=== PATIENT | female | born 1945 | race Asian ===

== ENCOUNTER → 2016-09-20 | Outpatient (CLI) | payer MEDICARE, OTHER | LOC: SP 11:02 | PROVIDERS: ATTEND Specialist | DX: Z79.899 Other long term (current) drug therapy (principal) | CPT/HCPCS: 93306 ==

== ENCOUNTER → 2016-12-21 | Outpatient (CLI) | payer MEDICARE, OTHER ==
--- NOTE | 2016-12-21 19:32 | XCELERA REPORT ---
[address] [address] Transthoracic Echocardiogram Report Name: LAURA COLLADO Age: 71 yrs Gender: Female : 1945 Patient Status: Outpatient Patient Location: Study Date: 12/21/2016 10:27 AM Height: 61 in Weight: 101 lb BSA: 1.4 m2 Reason For Study: CHEMOTHERAPY ENCOUNTER Z51.11 Ordering Physician: MYNOR MARQUIS Performed By: Efren Augustine Interpretation Summary LVEF 60%, probably no LVDD. Hypokinetic IVS and apical Inferior wall. Normal AV, no or AR, MR mild/mod with no LA enlargement. Mild/mod TR with upper normal RVSP 30mm Hg,with no R heart enlargement. MMode/2D Measurements \T\ Calculations RVDd: 2.2 cm LVIDd: 4.3 cm FS: 32.1 % Ao root diam: 2.9 cm IVSd: 0.75 cm LVIDs: 2.9 cm EDV(Teich): 81.8 ml LVPWd: 0.76 cm ESV(Teich): 32.3 ml Ao root area: 6.8 cm2 EF(Teich): 60.6 % LA dimension: 3.3 cm Doppler Measurements \T\ Calculations MV E max lilly: MV P1/2t max lilly: Ao V2 max: LV V1 max P.2 cm/sec 102.2 cm/sec 135.1 cm/sec 2.7 mmHg MV A max lilly: MV P1/2t: 48.7 msec Ao max PG: LV V1 max: 103.7 cm/sec 7.3 mmHg 81.4 cm/sec MV E/A: 0.99 MVA(P1/2t): 4.5 cm2 MV dec slope: 614.4 cm/sec2 PA V2 max: PI end-d lilly: TR max lilly: RAP systole: 82.3 cm/sec 120.8 cm/sec 247.8 cm/sec 10.0 mmHg PA max P.7 mmHg TR max P.6 mmHg RVSP(TR): 34.6 mmHg Left Ventricle The left ventricle is normal in size, thickness and function. There is normal left ventricular wall thickness. LV EF is 60%. LV diastolic function not assessed. There is septal wall mild hypokinesis. There is no thrombus. Right Ventricle The right ventricle is normal in size, thickness and function. The right ventricular systolic function is normal. Atria The right atrium is normal in size. The left atrial size is normal. The interatrial septum is intact with no evidence for an atrial septal defect. Mitral Valve The mitral valve is normal in structure and function. There is no evidence of mitral valve prolapse. There is no mitral valve stenosis. There is a moderate amount of mitral regurgitation. The mitral regurgitant jet is eccentrically directed. Aortic Valve The aortic valve is sclerotic, but shows no functional abnormality. The aortic valve is trileaflet. The aortic valve opens well. There is no aortic valvular vegetation. There is no aortic valve stenosis. No aortic regurgitation is present. Tricuspid Valve The tricuspid valve is not well visualized, but is grossly normal. There is no tricuspid valve prolapse. There is no tricuspid stenosis. There is a mild to moderate amount of tricuspid regurgitation. Right ventricular systolic pressure is estimated to be within upper limit of normal. Pulmonic Valve The pulmonic valve is not well visualized. There is a mild amount of pulmonic regurgitation. Great Vessels The aortic root is normal size. Effusions Minimal pericardial effusion. I WMSI = 1.38 % Normal = 63 Segments Size X - Cannot 1 - Normal 2 - 3 - Akinetic4 - 1-2 small Interpret Hypokinetic Dyskinetic 3-5 moderate 5 - 6-14 large Aneurysmal 15-16 diffuse : MYNOR MARQUIS > Ashleigh, Ritchie
== END ==
LOC: SP 09:57
PROVIDERS: ATTEND Specialist
DX: Z51.11 Encounter for antineoplastic chemotherapy (principal); Z79.899 Other long term (current) drug therapy
CPT/HCPCS: 93306

== ENCOUNTER 2017-01-05 11:27 | Day surgery (SDC) | payer MEDICARE, OTHER ==
--- NOTE | 2017-01-03 12:01 | EKG REPORT ---
SEVERITY:- ABNORMAL ECG - SINUS RHYTHM CONSIDER LEFT VENTRICULAR HYPERTROPHY : Confirmed by: Bernarda Da Silva 03-Jan-2017 12:01:29
[2017-01-03 12:33] LABS: HEMATOCRIT 30.9 % (36.0-47.0); HEMOGLOBIN 10.4 g/dL (12.0-15.5); HGB HCT DIFFERENCE 0.3; MEAN CORPUSCULAR HEMOGLOBIN 33.6 pg (27.0-33.4); MEAN CORPUSCULAR HGB CONC 33.8 g/dL (32.0-36.0); MEAN CORPUSCULAR VOLUME 99 fl (80-97); RED BLOOD COUNT 3.11 10^6/uL (3.72-5.28); RED CELL DISTRIBUTION WIDTH 17.5 % (11.5-14.0); WHITE BLOOD COUNT 12.6 10^3/uL (4.0-10.5)
[~2017-01-05 11:27] MED LIST: ACETAMINOPHEN 325 MG TABLET PO PRN; CEFAZOLIN 1 GM/D5W RTU 1 GM/50 ML RTUPB IV PRN; LACTATED RINGERS 1000 ML IV PRN; LIDOCAINE 0.5% INJ-PF (5 MG/ML) 50 ML SDV SUBCUT PRN; LIDOCAINE 1% INJ-PF (10 MG/ML) 30 ML SDV ONE
[2017-01-05] MEDS ORDERED: LIDOCAINE 1% INJ-PF (10 MG/ML) 30 ML SDV ONE (13:45)
[2017-01-05] MEDS ORDERED: FENTANYL CITRATE INJ/PF 100 MCG/2 ML AMPUL ONE ×2 (14:02)
[2017-01-05] MEDS ORDERED: MIDAZOLAM 2 MG/2 ML INJ ONE (14:03)
[2017-01-05] MEDS ORDERED: ONDANSETRON HCL INJ/PF 4 MG/2 ML SDV IV PRN ×2 (14:35→14:59)
[2017-01-05] MEDS ORDERED: FENTANYL CITRATE INJ/PF 100 MCG/2 ML AMPUL IV PRN ×3 (14:35)
[2017-01-05] MEDS ORDERED: DIPHENHYDRAMINE HCL 50 MG/ML VIAL IV PRN (14:35)
[2017-01-05] MEDS ORDERED: OXYCODONE-ACETAMINOPHEN 5-325 MG TABLET PO PRN (14:59)
[2017-01-05] MEDS ORDERED: RINGERS SOLUTION,LACTATED 1,000 ML IV PRN (14:59)
[2017-01-05] MEDS ORDERED: MORPHINE SULFATE 10 MG/ML INJ IV PRN (14:59)
--- NOTE | 2017-01-05 15:07 | PDOC DISCHARGE SUMMARY ---
Discharge Summary (SDC) - Discharge Final Diagnosis: breast cancer Date of Surgery: 01/05/17 Discharge Date: 01/05/17 Condition: Good Treatment or Instructions: [facility] [address] [place] [id number] Discharge Instructions: Neck Surgery 1. General Information: a. Do not drive a car or operate machinery for 1-2 weeks or as long as taking narcotics for pain. b. Do not consume alcohol, tranquilizers, sleeping medications or any non- prescribed medications for 24 hours unless approved by your doctor or as long as taking pain medication. c. Do not make important decisions or sign any important papers for the first 24 hours after surgery. d. When discharged home the same day of surgery have a responsible person with you for the first night. 2. Activity Restrictions: 2 weeks. a. Avoid heavy lifting > 10 lbs, straining, sports, mowing lawn, shoveling snow, vacuum cleaning and bending over a lot. Limit bending to taking a shower and getting dressed. Sleep with head elevated (2 pillows). b. Walking is important to avoid blood clots in the legs and deep breathing can prevent pneumonia. c. It is fine to go up and down steps, ride in a car, and use a stationary bike with low resistance. 3. Treatment: a. The dressing can be removed the day after surgery and to shower then daily is fine, but you should not bathe in the tub or go swimming for 2 weeks. The paper strips (steri-strips) on the skin will fall off and can get wet with a shower, just pat them dry. The sutures dissolve and the strips will be removed in the office on your follow up visit if they have not fallen off by then. May shower 24 hours after surgery; if your incision was glued you may wash your neck and expect glue to fall off in about 2 weeks. b. Do not use oils, powders or lotion on your incision until after the first postoperative visit. Then you may begin to apply daily to the incision a cream of your choice (Vitamin E, cocoa butter, scar creams) to help soften the scar. c. If you are fair skinned it would be sheikh to use sunscreen on the scar for the first 6 months or keep it covered to avoid tanning pigment deposits being trapped in the scar creating a dark line instead of a pink scar. 4. Medications: a. b. Stop the narcotic when able since you cannot take and drive and they may cause constipation. You may switch to plain Tylenol, Advil or Aleve as you transition from the narcotic. Many adults find good pain relief with Ibuprofen 600-800 mg three times a day with meals to work well to avoid narcotic use. High doses of Ibuprofen should only be used for short courses since it can cause indigestion, ulcer bleeding in the stomach and harm kidney function. c. You should resume all normal medications unless a change is specified by your doctors. d. 5. Diet: a. If going home same day of surgery you should begin with clear liquids and if do well then advance to a normal diet with foods low in fat and protein. Small portion sizes may be sheikh the first night to lessen risk of vomiting. b. When discharged after a hospital stay you may resume a normal diet. 6. Notify Physician If: a. Worsening of pain or swelling in neck, persistent bleeding at the operative site, nausea and vomiting, fever above 101, unable to urinate and bladder pressure after 8-12 hours, increased redness, drainage, or foul smelling discharge from the incision. b. If you have difficulty breathing or chest pain, call an ambulance and/or go to the Emergency Room. 7. Follow Up Care: a. Schedule a follow up appointment with your doctor for 2 weeks. In the event of any postoperative problems or questions or you may call the office during business hours or the On-Call physician evenings and weekends at [facility]. [facility] 8. I understand the instructions for my postoperative care as described above and a copy has been given to me. Patient/Significant Other Witness Date Prescriptions: Ketorolac Tromethamine [Toradol 10 mg Tablet] 10 mg PO Q6HP #14 tablet Referrals: SANCHEZ SOMMER MD [Primary Care Provider] - Discharge Activity: Activity As Tolerated Home Care Assistance: None Needed Report the Following to Your Physician Immediately: Shortness of Breath, Increase in Pain, Fever over 101 Degrees
--- NOTE | 2017-01-05 16:02 | RADIOLOGY REPORT (SQ) ---
EXAM DESCRIPTION: FLUORO/CV PLACEMENT COMPLETED DATE/TIME: 01/05/2017 3:27 pm REASON FOR STUDY: PORTACATH PLCMT ASST WITH FLUORO IN OR C50.411 MALIG NEOPLM OF UPPER-OUTER QUADRA NT OF RIGHT FEMALE Z01.818 ENCOUNTER FOR OTHER PREPROCEDURAL EXAMINATION COMPARISON: None. FLUOROSCOPY TIME: 0.2 minutes 3 digital C-arm images saved to PACS. TECHNIQUE: Intra-operative images acquired during surgical procedure to evaluate progress. NUMBER OF IMAGES: Cine fluoroscopic images. LIMITATIONS: None. FINDINGS: Intra procedural imaging and fluoro during left-sided permanent central line placement. P lease see the operative report for further details IMPRESSION: Intra procedural imaging and fluoro COMMENT: Quality ID [id number]: Final reports for procedures using fluoroscopy that document radiation exp osure indices, or exposure time and number of fluorographic images (if radiation exposure indices are not available) Please consult full operative report of the attending physician for description of the procedure. TECHNICAL DOCUMENTATION: JOB ID: [id number] [employer]- All Rights Reserved
--- NOTE | 2017-01-05 16:05 | RADIOLOGY REPORT (SQ) ---
EXAM DESCRIPTION: CHEST SINGLE VIEW COMPLETED DATE/TIME: 01/05/2017 3:28 pm REASON FOR STUDY: s/p port COMPARISON: CT chest 01/28/2011 EXAM PARAMETERS: NUMBER OF VIEWS: One view. TECHNIQUE: Single frontal radiographic view of the chest acquired. RADIATION DOSE: NA LIMITATIONS: None. FINDINGS: LUNGS AND PLEURA: Less than 1 cm nodule projected over the left lateral costophrenic sulcu s is likely the left nipple shadow. No focal infiltrates. No pleural effusion. No pneumothorax. MEDIASTINUM AND HILAR STRUCTURES: No masses. Contour normal. HEART AND VASCULAR STRUCTURES: Heart normal in size. Normal vasculature. BONES: No acute findings. HARDWARE: Left-sided permanent central line tip superior vena cava. Right breast surgical clips post mastectomy OTHER: No other significant finding. IMPRESSION: No pneumothorax post left-sided permanent central line placement, with the tip in the anderson perior vena cava TECHNICAL DOCUMENTATION: JOB ID: [id number]
--- NOTE | 2017-01-05 17:07 | OPERATIVE REPORT E ---
Operative Report NAME: LAURA COLLADO : 1945 AGE: 71Y DATE OF SURGERY: 01/05/2017 ROOM: PREOPERATIVE DIAGNOSIS: Right breast carcinoma. POSTOPERATIVE DIAGNOSIS: Right breast carcinoma. PROCEDURE: 1. Focused ultrasound of the left neck. 2. Ultrasound directed insertion of single lumen Infusaport catheter, left internal jugular vein. 3. Interpretation of intraoperative fluoroscopy. SURGEON: THALIA CROFT M.D. TRAFFIC MANAGER: Candido COMPLICATIONS: None. FINDINGS: See below. ESTIMATED BLOOD LOSS: Minimal. SUMMARY OF PROCEDURE: The patient was taken from the preop holding area to the main operating room where LMAC anesthesia was induced. The left neck and chest wall were prepped and draped in a sterile fashion. Surgical plan and surgical timeout were conducted. The left neck was scanned with the variable frequency linear transducer. Findings were significant for patent, compressible internal jugular vein suitable for cannulation. Skin was anesthetized with 1% plain lidocaine. Using the Seldinger technique, microneedle and wire were threaded into the left internal jugular vein. We then turned our attention to the left subclavian area for port pocket placement. The skin was anesthetized with 1% lidocaine plain. Approximately 3 cm incision was made in the subclavicular area, parallel to the left clavicle. A port pocket was developed large enough to accommodate a single chamber port. The catheter was then trimmed to approximately 26 cm in length. The catheter was tunneled between the 2 incisions, then attached to the port and then the port and catheter tucked into position. We then switched the micro-wire over to a conventional 0.030 guidewire using the micro-introducer sheath. The micro sheath was removed, and a 8 Romansh dilator introducer sheath was threaded over the conventional wire. The wire and dilator were removed, catheter threaded into the left internal jugular vein and the strip away sheath removed. Under fluoroscopic guidance, there was no kinking of the catheter, the tip of the catheter was in the proximal superior vena cava. The catheter chamber was aspirated and flushed with heparinized saline. There was no mechanical bleeding from the wound sites. We felt the operation was complete. Wounds closed with 3-0 Vicryl, benzoin, and Steri-Strips. The patient tolerated the procedure well and taken to recovery area in stable condition. Portable upright chest x-ray pending at time of dictation. MICHEAL Rey assisted with skin retraction and wound closure. DICTATING PHYSICIAN: THALIA CROFT M.D. [id number] PHY#: [id number] ID: [id number] JOB#: [id number] ACCT: [id number] cc:THALIA CROFT M.D. >
[2017-01-05 17:24] VITALS: BP 140/80
== END 2017-01-05 17:26 | disposition home or self-care (01) ==
LOC: OROUT 11:27
PROVIDERS: ATTEND Surgery
PROC: 05HM33Z Insertion of Infusion Device into Right Internal Jugular Vein, Percutaneous Approach (ICD-10-PCS; principal; 2017-01-05 13:00)
DX: C50.411 Malignant neoplasm of upper-outer quadrant of right female breast (principal); E78.00 Pure hypercholesterolemia, unspecified; M81.0 Age-related osteoporosis without current pathological fracture; Z79.82 Long term (current) use of aspirin; Z79.899 Other long term (current) drug therapy; Z88.1 Allergy status to other antibiotic agents
CPT/HCPCS: 36561; 93005; 36415; 85027; 71010; 77001; 93010; C1752; C1788; J2250; J0690; J3010; J3490; J1642; 532

== ENCOUNTER → 2017-04-04 | Outpatient (CLI) | payer MEDICARE, OTHER ==
--- NOTE | 2017-04-05 12:07 | RADIOLOGY REPORT (SQ) ---
EXAM DESCRIPTION: NM MUGA REST COMPLETED DATE/TIME: 04/05/2017 10:30 am REASON FOR STUDY: ENCOUNTER FOR FOLLOW UP EXAM AFTER COMPLETED TREATMENT FOR MAL ELINA Z08 ENCNTR FOR FOLLOW-UP EXAM AFTER TRTMT FOR MALIGNANT NEOP COMPARISON: Cardiac echo 12/21/2016 RADIONUCLIDE AND DOSE: 25.6 mCi pyrophosphate was tagged to the patient's own red cells The route of agent administration: Intravenous TECHNIQUE: Following administration of the radionuclide, gated images of the heart are obtained in t hree projections. Left ventricular functional analysis performed. LIMITATIONS: None. FINDINGS: LEFT VENTRICULAR FUNCTION: EJECTION FRACTION: 63%. END-DIASTOLIC VOLUME: 111 mL. END-SYSTOLIC VOLUME: 45 mL. WALL MOTION: No focal wall motion abnormalities. OTHER: No other significant finding. IMPRESSION: NORMAL CARDIAC MUGA STUDY. NORMAL LEFT VENTRICULAR ejection fraction of 63% TECHNICAL DOCUMENTATION: JOB ID: [id number] [email or web address]- All Rights Reserved
== END ==
LOC: RAD 13:49
PROVIDERS: ATTEND Internal Medicine
DX: Z08 Encounter for follow-up examination after completed treatment for malignant neoplasm (principal); R07.9 Chest pain, unspecified; C50.411 Malignant neoplasm of upper-outer quadrant of right female breast; D70.1 Agranulocytosis secondary to cancer chemotherapy
CPT/HCPCS: 78472; A9560; Q9969

== ENCOUNTER → 2017-07-15 | Outpatient (CLI) | payer MEDICARE, OTHER ==
--- NOTE | 2017-07-15 13:42 | RADIOLOGY REPORT (SQ) ---
EXAM DESCRIPTION: NM MUGA REST COMPLETED DATE/TIME: 07/15/2017 1:26 pm REASON FOR STUDY: S/P CHEMO (Z08) Z08 ENCNTR FOR FOLLOW-UP EXAM AFTER TRTMT FOR MALIGNANT NEOP COMPARISON: 04/04/2017. RADIONUCLIDE AND DOSE: 25.9 mCi technetium 99 M pyrophosphate. The route of agent administration: Intravenous TECHNIQUE: Following administration of the radionuclide, gated images of the heart are obtained in t hree projections. Left ventricular functional analysis performed. LIMITATIONS: None. FINDINGS: LEFT VENTRICULAR FUNCTION: EJECTION FRACTION: 70%. END-DIASTOLIC VOLUME: 156 mL. END-SYSTOLIC VOLUME: 36 mL. WALL MOTION: No focal wall motion abnormalities. OTHER: No other significant finding. IMPRESSION: NORMAL CARDIAC MUGA STUDY. NORMAL LEFT VENTRICULAR FUNCTION WITH VALUES ABOVE. TECHNICAL DOCUMENTATION: JOB ID: [id number] [employer]- All Rights Reserved Reading location - IP/workstation name: [email or web address]
== END ==
LOC: RAD 10:37
PROVIDERS: ATTEND Internal Medicine
DX: Z08 Encounter for follow-up examination after completed treatment for malignant neoplasm (principal); C50.411 Malignant neoplasm of upper-outer quadrant of right female breast; Z92.21 Personal history of antineoplastic chemotherapy
CPT/HCPCS: 78472; A9560; Q9969

== ENCOUNTER 2019-04-10 06:46 | Day surgery (SDC) | payer MEDICARE, OTHER ==
[~2019-04-10 06:46] MED LIST changes: -ACETAMINOPHEN 325 MG TABLET PO PRN; -CEFAZOLIN 1 GM/D5W RTU 1 GM/50 ML RTUPB IV PRN; +KETOROLAC TROMETHAMINE 0.45% 4 DROP/0.4 ML DROPERETTE OD PRN; -LACTATED RINGERS 1000 ML IV PRN; -LIDOCAINE 0.5% INJ-PF (5 MG/ML) 50 ML SDV SUBCUT PRN; -LIDOCAINE 1% INJ-PF (10 MG/ML) 30 ML SDV ONE
[2019-04-10] MEDS: CYCLOPENTOLATE 0.2%/PHENYLEPHRINE 1% OPH SOLN 2 ML OD PRN ×2 (07:00→07:15)
[2019-04-10] MEDS: BESIFLOXACIN HCL 0.6% OPH SUSP 5 ML BOTTLE OD PRN ×4 (07:00→08:26)
[2019-04-10] MEDS: TROPICAMIDE 1% OPH SOLN 15 ML OD PRN ×3 (07:00→07:27)
[2019-04-10] MEDS: TETRACAINE HCL 0.5% OPH SOLN 4 ML OD PRN ×5 (07:00→07:59)
[2019-04-10] MEDS ORDERED: MIDAZOLAM 2 MG/2 ML INJ ONE (07:14)
[2019-04-10] MEDS: BUPIVACAINE HCL 0.75% INJ/PF (7.5 MG/1 ML) 10 ML SDV OD PRN ×2 (08:00)
[2019-04-10] MEDS: LIDOCAINE 4% INJ/PF (40 MG/ML) 5 ML AMPUL OD PRN ×2 (08:00)
[2019-04-10] MEDS: CHONDR SU A NA/HYALUR INTRAOC KIT (SURGICARE) ONE ×2 (08:12)
[2019-04-10] MEDS: LIDOCAINE 1% INJ-PF (10 MG/ML) 30 ML SDV ONE ×2 (08:12)
[2019-04-10] MEDS: EPINEPHRINE INJ/PF 1 MG/1 ML AMPULE ONE ×2 (08:12)
[2019-04-10] MEDS: DORZOLAMIDE HCL 2%/TIMOLOL MALEAT 0.5% OPH SOLN 10 ML OD PRN ×2 (08:26)
--- NOTE | 2019-04-10 14:46 | Operative Report ---
Operative Report-[facility] Operative Report: DATE OF SURGERY: 04/10/2019 PREOPERATIVE DIAGNOSIS: CATARACT, RIGHT EYE. POSTOPERATIVE DIAGNOSIS: CATARACT, RIGHT EYE. PROCEDURE PERFORMED: PHACOEMULSIFICATION WITH POSTERIOR CHAMBER INTRAOCULAR LENS, RIGHT EYE. Intraocular Lens Model : MX60E 22.0 Total Phaco Time: 11.96 CDE SURGEON: FRANCO LEOS MD ANESTHESIA: TOPICAL WITH MAC. INDICATIONS FOR SURGERY: Difficulty night driving and reading small print. PROCEDURE: The patient was brought to the Operating Room and placed on the operative table. Following tetracaine drops, topical anesthesia was administered. This consisted of instrument wipe pledgets soaked in a solution of 4% Xylocaine mixed with 0.75% Marcaine in a 1:2 ratio. A 2 x 1 cm pledget was placed in the superior fornix. A 1 x 1 cm pledget was placed in the inferior fornix. The eye was patched shut for 5 minutes. The patch was removed. The eye was sterilely prepped and draped in the usual manner. Lid speculum was placed in the eye. The pledgets were removed. 4-0 black silk sutures were placed around the superior and the inferior rectus muscles to be used as traction. A conjunctival peritomy was made at the 10 o'clock position. Hemostasis was obtained with bipolar cautery. A posterior limbal groove was created using a crescent knife and dissected anteriorly towards the cornea. A sharp point blade was used to create a paracentesis site at the 2 o'clock position. 0.2 cc non preserved Lidocaine was injected into the anterior chamber. A 2.4 mm keratome was used to enter the anterior chamber through the groove. Viscoelastic was injected into the anterior chamber. An anterior capsulotomy was performed using Utrata forceps in a capsulorrhexis fashion. Hydrodissection and hydrodelineation were performed. Phacoemulsification was performed in [id number] technique. Following this, the I/A unit was used to remove residual cortex. Viscoelastic was injected into the capsular bag. The Intraocular lens was placed in the capsular bag. The I/A unit was used to remove residual viscoelastic. The wound was seen to be watertight under high and low pressure, and no sutures were placed. The intraocular lens was well centered. The pressure was adjusted in the eye to normal pressure. The 4-0 black silk sutures and lid speculum were removed. The eye was shielded after Besivance and Cosopt drops were placed. The patient tolerated the procedure well and was sent to the Recovery Room in good condition.
== END 2019-04-10 09:26 | disposition home or self-care (01) ==
LOC: SC 06:46
PROVIDERS: ATTEND Ophthalmology
DX: H25.813 Combined forms of age-related cataract, bilateral (principal); H40.023 Open angle with borderline findings, high risk, bilateral; H02.831 Dermatochalasis of right upper eyelid; H02.834 Dermatochalasis of left upper eyelid; E78.00 Pure hypercholesterolemia, unspecified; Z79.82 Long term (current) use of aspirin; Z79.899 Other long term (current) drug therapy; Z88.1 Allergy status to other antibiotic agents
CPT/HCPCS: 66984; V2632; J2250; J3490 ×5; A9270; J0171

== ENCOUNTER 2019-05-08 08:44 | Day surgery (SDC) | payer MEDICARE, OTHER ==
[~2019-05-08 08:44] MED LIST changes: +BUPIVACAINE HCL 0.75% INJ/PF (7.5 MG/1 ML) 10 ML SDV OS PRN; +FENTANYL CITRATE INJ/PF 100 MCG/2 ML AMPUL ONE; -KETOROLAC TROMETHAMINE 0.45% 4 DROP/0.4 ML DROPERETTE OD PRN; +KETOROLAC TROMETHAMINE 0.45% 4 DROP/0.4 ML DROPERETTE OS PRN; +LIDOCAINE 4% INJ/PF (40 MG/ML) 5 ML AMPUL OS PRN; +MIDAZOLAM 2 MG/2 ML INJ ONE; +ONDANSETRON HCL INJ/PF 4 MG/2 ML SDV ONE
[2019-05-08] MEDS: CYCLOPENTOLATE 0.2%/PHENYLEPHRINE 1% OPH SOLN 2 ML OS PRN ×3 (08:53→09:13)
[2019-05-08] MEDS: BESIFLOXACIN HCL 0.6% OPH SUSP 5 ML BOTTLE OS PRN ×4 (08:53→10:01)
[2019-05-08] MEDS: TROPICAMIDE 1% OPH SOLN 15 ML OS PRN ×3 (08:53→09:13)
[2019-05-08] MEDS: TETRACAINE HCL 0.5% OPH SOLN 4 ML OS PRN ×3 (08:54→09:36)
[2019-05-08] MEDS: CHONDR SU A NA/HYALUR INTRAOC KIT (SURGICARE) ONE ×2 (09:48)
[2019-05-08] MEDS: LIDOCAINE 1% INJ-PF (10 MG/ML) 30 ML SDV ONE ×2 (09:48)
[2019-05-08] MEDS: EPINEPHRINE INJ/PF 1 MG/1 ML AMPULE ONE ×2 (09:48)
[2019-05-08] MEDS: DORZOLAMIDE HCL 2%/TIMOLOL MALEAT 0.5% OPH SOLN 10 ML OS PRN ×2 (10:01)
--- NOTE | 2019-05-08 12:33 | Operative Report ---
Operative Report-[facility] Operative Report: DATE OF SURGERY: 05/08/2019 PREOPERATIVE DIAGNOSIS: CATARACT, LEFT EYE. POSTOPERATIVE DIAGNOSIS: CATARACT, LEFT EYE. PROCEDURE PERFORMED: PHACOEMULSIFICATION WITH POSTERIOR CHAMBER INTRAOCULAR LENS, LEFT EYE. Intraocular Lens Model : MX60E 22.5 Total Phaco Time: 8.45 CDE SURGEON: FRANCO LEOS MD ANESTHESIA: TOPICAL WITH MAC. INDICATIONS FOR SURGERY: Difficultly driving at night and making out facial features PROCEDURE: The patient was brought to the Operating Room and placed on the operative table. Following tetracaine drops, topical anesthesia was administered. This consisted of instrument wipe pledgets soaked in a solution of 4% Xylocaine mixed with 0.75% Marcaine in a 1:2 ratio. A 2 x 1 cm pledget was placed in the superior fornix. A 1 x 1 cm pledget was placed in the inferior fornix. The eye was patched shut for 5 minutes. The patch was removed. The eye was sterilely prepped and draped in the usual manner. Lid speculum was placed in the eye. The pledgets were removed. 4-0 black silk sutures were placed around the superior and the inferior rectus muscles to be used as traction. A conjunctival peritomy was made at the 10 o'clock position. Hemostasis was obtained with bipolar cautery. A posterior limbal groove was created using a crescent knife and dissected anteriorly towards the cornea. A sharp point blade was used to create a paracentesis site at the 2 o'clock position. 0.2 cc non preserved Lidocaine was injected into the anterior chamber. A 2.4 mm keratome was used to enter the anterior chamber through the groove. Viscoelastic was injected into the anterior chamber. An anterior capsulotomy was performed using Utrata forceps in a capsulorrhexis fashion. Hydrodissection and hydrodelineation were performed. Phacoemulsification was performed in [id number] technique. Following this, the I/A unit was used to remove residual cortex. Viscoelastic was injected into the capsular bag. The Intraocular lens was placed in the capsular bag. The I/A unit was used to remove residual viscoelastic. The wound was seen to be watertight under high and low pressure, and no sutures were placed. The intraocular lens was well centered. The pressure was adjusted in the eye to normal pressure. The 4-0 black silk sutures and lid speculum were removed. The eye was shielded after Besivance and Cosopt drops were placed. The patient tolerated the procedure well and was sent to the Recovery Room in good condition.
== END 2019-05-08 10:43 | disposition home or self-care (01) ==
LOC: SC 08:44
PROVIDERS: ATTEND Ophthalmology
DX: H25.812 Combined forms of age-related cataract, left eye (principal); Z96.1 Presence of intraocular lens; Z88.1 Allergy status to other antibiotic agents; Z79.82 Long term (current) use of aspirin; Z79.899 Other long term (current) drug therapy
CPT/HCPCS: 66984; V2632; J2250; J3490 ×5; A9270; J0171; J3010; J2405; 142